=== PATIENT | female | born 1945 | race Caucasian/White ===

== ENCOUNTER 2019-10-03 12:21 | Outpatient (RCR) | payer BC, SELFPAY ==
[2019-10-03 12:39] VITALS: BMI 27.4
[2019-10-03 12:43] VITALS: BMI 27.4
== END 2020-01-01 23:59 | disposition home or self-care (01) ==
LOC: ANHDMC 12:21
DX: E11.9 Type 2 diabetes mellitus without complications (principal); Z71.3 Dietary counseling and surveillance
CPT/HCPCS: 97802

== ENCOUNTER 2020-05-13 09:15 | Outpatient (RCR) | payer BC, SELFPAY | END 2020-05-13 10:28 | disposition home or self-care (01) | LOC: ANHDMC 09:15 | PROVIDERS: Visit Provider Family Medicine Sports Medicine | DX: E11.9 Type 2 diabetes mellitus without complications (principal); Z71.89 Other specified counseling | CPT/HCPCS: G0108 ==

== ENCOUNTER 2020-10-09 15:53 | Outpatient (CLI) | payer BC, SELFPAY ==
--- NOTE | ~2020-10-09 | MM_ITS ---
EXAMINATION: MM screening sorin BI w sabina HISTORY: Screening mammogram TECHNIQUE: Craniocaudal and mediolateral oblique 3-D tomosynthesis images were obtained and synthetic 2-D images were generated. CAD analysis was submitted and interpreted. COMPARISON: 09/07/2019, 07/25/2018 bilateral digital screening mammogram examinations BREAST PARENCHYMAL COMPOSITION: There are scattered areas of fibroglandular density. FINDINGS: Occasional small low-density circumscribed benign-appearing opacities are noted. There is n o evidence of suspicious mass, calcification, or architectural distortion to suggest malignancy in ei ther breast. There has been no suspicious interval change. IMPRESSION: 1. No mammographic evidence of malignancy. 2. Recommend routine screening mammography in one year. BI-RADS Category 2: Benign finding(s). Reviewed, dictated and finalized at location A. TION SOCIAL WORKER
== END 2020-10-09 15:54 | disposition home or self-care (01) ==
LOC: ANHIMG 15:56
PROVIDERS: Visit Provider Family Medicine Sports Medicine
DX: Z12.31 Encounter for screening mammogram for malignant neoplasm of breast (principal)
CPT/HCPCS: 77063; 77067

== ENCOUNTER 2021-11-04 11:54 | Outpatient (CLI) | payer BC, SELFPAY ==
--- NOTE | ~2021-11-04 | MM_ITS ---
EXAMINATION: MM screening sorin BI w sabina HISTORY: Screening TECHNIQUE: Craniocaudal and mediolateral oblique 3-D tomosynthesis images were obtained and synthetic 2-D images were generated. CAD analysis was submitted and interpreted. COMPARISON: Comparison to multiple prior studies sequentially, with oldest reviewed study dated 06/03. BREAST PARENCHYMAL COMPOSITION: There are scattered areas of fibroglandular density. FINDINGS: There is no evidence of suspicious mass, calcification, or architectural distortion to sugg est malignancy in either breast. There has been no suspicious interval change. IMPRESSION: 1. No mammographic evidence of malignancy. 2. Recommend routine screening mammography in one year. BI-RADS Category 1: Negative Reviewed, dictated and finalized at location D. ION CREWS ACTIVITIES CLERK
== END 2021-11-04 11:55 | disposition home or self-care (01) ==
LOC: ANHIMG 11:57
PROVIDERS: Visit Provider Family Medicine Sports Medicine
DX: Z12.31 Encounter for screening mammogram for malignant neoplasm of breast (principal)
CPT/HCPCS: 77063; 77067

== ENCOUNTER 2022-07-26 13:22 | Outpatient (CLI) | payer BC, SELFPAY ==
--- NOTE | ~2022-07-26 | XR_ITS ---
EXAM: XR cervical spine 4-5V DATE: 07/26/2022 13:55 HISTORY: SPONDYLOSIS WITHOUT MYELOPATHY OR RADICULOPATHY . COMPARISON: None available. FINDINGS: Craniocervical association and atlantoaxial joint are aligned and display mild degenerativ e change. No prevertebral soft tissue swelling. Trace anterolisthesis at C3-4. 3 mm retrolisthesis at C5-6. 2 mm anterolisthesis at C7-T1. Mild vertebral body height loss at C5. Moderate disc space narr owing and marginal osteophytosis at C5-6 and C6-7 including large bridging anterior osteophytes. Mult ilevel severe facet sclerosis and hypertrophy. IMPRESSION: Multilevel grade 1 listheses. Moderate degenerative disc disease at C5-6 and C6-7. Multil evel severe facet arthropathy. Reviewed, dictated and finalized at location K. [place] MEDIA PROJECT MANAGER IMPRESSION: Multilevel grade 1 listheses. Moderate degenerative disc disease at C5-6 and C6-7. Multilevel severe facet arthropathy.
== END 2022-07-26 13:23 | disposition home or self-care (01) ==
DX: M47.812 Spondylosis without myelopathy or radiculopathy, cervical region (principal); M50.322 Other cervical disc degeneration at C5-C6 level
CPT/HCPCS: 72050

== ENCOUNTER 2023-01-13 07:57 | Outpatient (CLI) | payer BC, SELFPAY ==
--- NOTE | ~2023-01-13 | MM_ITS ---
EXAMINATION: MM screening sorin BI w sabina HISTORY: Screening mammogram TECHNIQUE: Craniocaudal and mediolateral oblique 3-D tomosynthesis images were obtained and synthetic 2-D images were generated. CAD analysis was submitted and interpreted. COMPARISON: November 04, 2021, October 09, 2020, August 30, 2019 bilateral screening mammogram exam inations BREAST PARENCHYMAL COMPOSITION: There are scattered areas of fibroglandular density. 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 There is no evidence of suspicious mass, calcification, or architectural distortion to sugges t malignancy in either breast. There has been no suspicious interval change. IMPRESSION: 1. No mammographic evidence of malignancy. 2. Recommend routine screening mammography in one year. BI-RADS Category 2: Benign finding(s). Reviewed, dictated and finalized at location A.
== END 2023-01-13 07:58 | disposition home or self-care (01) ==
LOC: ANHIMG 08:01
PROVIDERS: PCP Family Medicine Sports Medicine; Visit Provider Family Medicine Sports Medicine
DX: Z12.31 Encounter for screening mammogram for malignant neoplasm of breast (principal)
CPT/HCPCS: 77063; 77067

== ENCOUNTER 2024-01-26 07:20 | Outpatient (CLI) | payer BC, SELFPAY ==
--- NOTE | ~2024-01-26 | MM_ITS ---
EXAMINATION: MM screening sorin BI w sabina HISTORY: Screening mammogram TECHNIQUE: Craniocaudal and mediolateral oblique 3-D tomosynthesis images were obtained and synthetic 2-D images were generated. CAD analysis was submitted and interpreted. COMPARISON: January 13, 2023, November 04, 2021 bilateral screening mammogram examinations BREAST PARENCHYMAL COMPOSITION: There are scattered areas of fibroglandular density. FINDINGS: There is no evidence of suspicious mass, calcification, or architectural distortion to sugg est malignancy in either breast. There has been no suspicious interval change. IMPRESSION: 1. No mammographic evidence of malignancy. 2. Recommend routine screening mammography in one year. BI-RADS Category 1: Negative Reviewed, dictated and finalized at location B.
== END 2024-01-26 07:21 | disposition home or self-care (01) ==
PROVIDERS: PCP Family Medicine; Visit Provider Family Medicine
DX: Z12.31 Encounter for screening mammogram for malignant neoplasm of breast (principal)
CPT/HCPCS: 77063; 77067

== ENCOUNTER 2024-02-20 14:18 | Emergency (ER) | payer BC, SELFPAY ==
--- NOTE | ~2024-02-20 | CT_ITS ---
EXAMINATION: CT abdomen pelvis w con DATE: 02/20/2024 16:30 INDICATION: Left abdominal pain. Diarrhea. TECHNIQUE: Computed tomography (CT) of the abdomen and pelvis was performed with 100 mL Omnipaque 350 intravenous contrast. Automated exposure control and iterative reconstruction technique were employe d. The dose-length product was 452.75 mGy-cm. COMPARISON: CT abdomen pelvis 12/02/2017 FINDINGS: The visualized portions of the lung bases demonstrate mild atelectasis. There is mild scarr ing in paraspinal right lower lobe. No pleural effusion. The heart size is normal. There are coronary artery calcifications. No pericardial effusion. There are cysts in the liver measuring up to 10 mm. The spleen, pancreas, and adrenal glands are normal. There are cysts in right kidney measuring up to 5.8 cm. There is a 12 mm mass in right kidney measuring soft tissue attenuation, stable from 8, likely benign. There is a 5 mm stone in left kidney. There is calcified atherosclerosis of the aor ta and many of the other arteries. There is diverticulosis of the colon without evidence of diverticu litis. There are no dilated loops of bowel. The appendix is normal. There are no pathologically enlar ged lymph nodes. There is no free intraperitoneal fluid. There is severe lumbar spondylosis and mild thoracic spondylosis. IMPRESSION: 1. No etiology for the patient's symptoms. Reviewed, dictated and finalized at location A.
[2024-02-20 14:27] VITALS: BP 137/78; PULSE 78; RESP 20; TEMP 36.8; O2SAT 98
--- NOTE | 2024-02-20 15:23 | ED.ABDPAIN ---
HPI - Abdominal Pain General Chief Complaint: Abdominal Pain Stated Complaint: left sided abd pain Time Seen by Provider: 02/20/24 15:23 Focused HPI: Patient is a 73 y/o female, with PMH of IBS and GERD, who presents to the ED with c/o left upper abdominal pain. Pain has been ongoing for past few months, worse over last couple weeks. States pain is intermittent, presents with sharp shooting pains. Reports having at least 5 episodes of 10/10 pain in the last 1 month. Denies change with eating. Denies other aggravating or alleviating factors. Has not tried anything for the pain. Takes Prilosec for GERD. Called her PCP today and was referred to the ED for further evaluation. Patient denies fevers, N/V/D, constipation, rectal bleeding, melena, urinary complaints, CP, SOB. Patient sees Dr. Loaiza with colorectal surgery at [facility]. Sees for IBS and hemorrhoids. Has an appointment with him tomorrow. GENERAL: Elderly, well-nourished, and in no acute distress. HEAD: Normocephalic, atraumatic. CHEST: Clear to auscultation. ?No respiratory distress. HEART: Regular rate and rhythm.? ABD: Mild tenderness throughout left lower/mid abdomen. Normoactive BS. NEURO: ?Alert and oriented x3. Patient screened in triage and initial orders placed.? ?Additional care and disposition to be based upon?diagnostic testing and treatment. Source: patient Mode of arrival: ambulatory Limitations: no limitations Related Data Allergies Allergy/AdvReac Type Severity Reaction Status Date / Time aspirin Allergy Mild CAUSES GI Verified 02/20/24 16:02 DISTRESS codeine Allergy Mild SEVERE Verified 02/20/24 16:02 HEADACHE PMFSH Past Medical History Medical History (Updated 02/21/24 @ 00:00 by Uzma Hutson) Diabetes Encounter for screening colonoscopy Fatty liver Social History Social History Smoking status: Never smoker Spiritual care concerns: No Course Vital Signs Vital signs: Vital Signs Temperature 98.2 F 02/20/24 14:27 Pulse Rate 78 02/20/24 14:27 Respiratory Rate 20 02/20/24 14:27 Blood Pressure 137/78 02/20/24 14:27 Pulse Oximetry 98 02/20/24 14:27 Temperature 98.2 F 02/20/24 14:27 Pulse Rate 51 L 02/20/24 16:54 Respiratory Rate 18 02/20/24 16:54 Blood Pressure 132/82 02/20/24 16:54 Pulse Oximetry 100 02/20/24 16:54 MDM - Abdominal Pain MDM Narrative Medical decision making narrative: MSE by RUDY in triage. Lab Data 02/20/24 15:53 02/20/24 15:53 Labs: Lab Results 02/20/24 Range/Units 15:53 WBC 7.1 (4.5-10.0) K/mm3 RBC 4.83 (4.2-5.4) M/mm3 Hgb 13.9 (12.0-15.0) g/dL Hct 43.9 (37.0-47.0) % MCV 90.9 (80-100) fl MCH 28.8 (26-34) pg MCHC 31.7 L (32-36) g/dl RDW 13.7 (11.5-14.5) % Plt Count 244 (150-375) k/mm3 MPV 9.6 (7.4-10.4) fl Immature Gran % (Auto) 0.1 (0-0.5) % Neut % (Auto) 64.4 (45.5-73.1) % Lymph % (Auto) 24.7 (18.3-44.2) % Giles % (Auto) 7.8 (2.6-8.5) % Eos % (Auto) 2.0 (0-4.4) % Baso % (Auto) 1.0 (0.2-1.2) % Lymph # (Auto) 1.74 (0.9-3.2) K/mm3 Giles # (Auto) 0.6 (0.1-0.6) K/mm3 Eos # (Auto) 0.1 (0-0.3) K/mm3 Baso # (Auto) 0.1 (0.0-0.1) K/mm3 Abs Immat Gran (auto) 0.01 (0.00-0.031) K/mm3 Absolute Neuts (auto) 4.5 (1.3-6.7) K/mm3 Absolute Nucleated RBC 0.000 (0.0-0.012) K/mm3 Nucleated RBC % 0.0 (0.0-0.2) % Sodium 139 (137-145) mmol/L Potassium 4.4 (3.4-5.0) mmol/L Chloride 105 (98-107) mmol/L Carbon Dioxide 30 (22-30) mmol/L Anion Gap 4 (4-12) mmol/L BUN 20 H (7-17) mg/dL Creatinine 1.00 (0.7-1.0) mg/dL Estim Creat Clear Calc 38 ml/min Estimated GFR 53 L (59 - ) Glucose 111 H (65-110) mg/dL Calcium 9.3 (8.4-10.2) mg/dL Total Bilirubin 1.5 H (0.2-1.3) mg/dL AST 41 H (14-36) U/L ALT 41 H (6-35) U/L Alkaline Phosphatase 58 (38-126) U/L Troponin I <
--- NOTE | 2024-02-20 15:27 | ECG_ITS ---
[facility] [address] Test Date: 2024-02-20 Pat Name: Jessica Winters Department: Room: Gender: F Consultant: : 1945 Requested By: Nakita Samaniego Order Number: [id number] Reading MD: Faustino Clarke M.D. Measurements Intervals Crooks Rate: 63 P: 48 PA: 184 QRS: -14 QRSD: 104 T: 49 QT: 396 QTc: 408 Interpretive Statements SINUS RHYTHM No previous ECG available for comparison Electronically Signed On 02-21-2024 14:14:56 CDT by Faustino Clarke M.D.
[2024-02-20 15:59] LABS: Basophils Absolute Auto 0.1 K/mm3 (0.0-0.1); Eosinophils Absolute Auto 0.1 K/mm3 (0-0.3); Hematocrit 43.9 % (37.0-47.0); Hemoglobin 13.9 g/dL (12.0-15.0); Immature Granulocyte Absolute 0.01 K/mm3 (0.00-0.031); Immature Granulocyte Percent A 0.1 % (0-0.5); Lymphocytes Absolute Auto 1.74 K/mm3 (0.9-3.2); Lymphocytes Percent Auto 24.7 % (18.3-44.2); Mean Corpuscular HGB Conc 31.7 g/dl (32-36); Mean Corpuscular Hemoglobin 28.8 pg (26-34); Mean Corpuscular Volume 90.9 fl (80-100); Mean Platelet Volume 9.6 fl (7.4-10.4); Monocytes Absolute Auto 0.6 K/mm3 (0.1-0.6); Monocytes Percent Auto 7.8 % (2.6-8.5); Neutrophils Absolute Auto 4.5 K/mm3 (1.3-6.7); Neutrophils Percent Auto 64.4 % (45.5-73.1); Platelet Count Result 244 k/mm3 (150-375); Red Blood Count 4.83 M/mm3 (4.2-5.4); Red Cell Distribution Width 13.7 % (11.5-14.5); White Blood Count 7.1 K/mm3 (4.5-10.0)
[2024-02-20 16:10] LABS: Alanine Aminotransferase 41 U/L (6-35); Albumin Level 4.4 g/dL (3.5-5.1); Alkaline Phosphatase 58 U/L (38-126); Anion Gap 4 mmol/L (4-12); Aspartate Amino Transferase 41 U/L (14-36); Bilirubin,Total 1.5 mg/dL (0.2-1.3); Blood Urea Nitrogen 20 mg/dL (7-17); Calcium 9.3 mg/dL (8.4-10.2); Carbon Dioxide 30 mmol/L (22-30); Chloride 105 mmol/L (98-107); Estimated CRCL calculation 38 ml/min; Estimated Glomerular Filt Rate 53; Glucose 111 mg/dL (65-110); Lipase 234 U/L (23-300); Potassium 4.4 mmol/L (3.4-5.0); Sodium 139 mmol/L (137-145)
--- NOTE | 2024-02-20 16:10 | ED.ABDPAIN ---
HPI - Abdominal Pain General Chief Complaint: Abdominal Pain Stated Complaint: left sided abd pain Time Seen by Provider: 02/20/24 15:23 Source: patient Mode of arrival: ambulatory Limitations: no limitations History of Present Illness HPI narrative: Pt presents with LUQ and left fank pain for over a month. Pt says it is mild but always present. rates it a 1 or 2 of 10 on pain scale. Pt says is nauseated at times. Pt called PCP and sent to ER for evaluation. Related Data Allergies Allergy/AdvReac Type Severity Reaction Status Date / Time aspirin Allergy Mild CAUSES GI Verified 02/20/24 16:02 DISTRESS codeine Allergy Mild SEVERE Verified 02/20/24 16:02 HEADACHE Review of Systems Review of Systems: All systems reviewed & are unremarkable except as noted in HPI and below PMFSH Past Medical History Medical History (Updated 02/20/24 @ 17:25 by Courtney Khan III, DO) Diabetes Encounter for screening colonoscopy Fatty liver Social History Social History Smoking status: Never smoker Spiritual care concerns: No Exam Const: General: healthy appearing and no acute distress Nutritional Appearance: well nourished Orientation/consciousness: patient oriented x3 Limitations: no limitations HENMT: Head: normal to inspection Neck: Neck: normal visual inspection Chest: Chest palpation & inspection: normal inspection of the chest Resp: Effort & Inspection: normal respiratory effort Auscultation: clear to auscultation bilaterally Cardio: Rate: regular rate Rhythm: regular rhythm GI: GI Palp: Yes Soft to palpation and Yes Tenderness to palpation present (GI) (LLQ no guarding or rebound, no epigastic or LUQ tenderness noted) Auscultation: normal bowel sounds Back/Spine/Pelvis: Back: no CVA tenderness Skin: General skin exam: normal color Rashes: no rashes Wounds: no wounds Neuro: General: patient oriented x3, moves all extremities, no meningeal signs and no focal motor deficits Speech: normal speech Extrem: General: normal to inspection and no clubbing, cyanosis or edema Psych: Mental Status: mental status grossly normal Affect: normal affect Attitude: cooperative Course Vital Signs Vital signs: Vital Signs Temperature 98.2 F 02/20/24 14:27 Pulse Rate 78 02/20/24 14:27 Respiratory Rate 20 02/20/24 14:27 Blood Pressure 137/78 02/20/24 14:27 Pulse Oximetry 98 02/20/24 14:27 Temperature 98.2 F 02/20/24 14:27 Pulse Rate 51 L 02/20/24 16:54 Respiratory Rate 18 02/20/24 16:54 Blood Pressure 132/82 02/20/24 16:54 Pulse Oximetry 100 02/20/24 16:54 MDM - Abdominal Pain MDM Narrative Medical decision making narrative: Pt has mild LUQ and left flank pain for over a month. Will check ua, labs and CT. labs us and ct neg. home on pepcid. Differential Diagnosis Differential diagnosis: Likely abdominal pain, calculus of kidney, diverticulitis, gastroenteritis, pancreatitis, small bowel obstruction and other (gastritis) Lab Data 02/20/24 15:53 02/20/24 15:53 Labs: Lab Results 02/20/24 Range/Units 15:53 WBC 7.1 (4.5-10.0) K/mm3 RBC 4.83 (4.2-5.4) M/mm3 Hgb 13.9 (12.0-15.0) g/dL Hct 43.9 (37.0-47.0) % MCV 90.9 (80-100) fl MCH 28.8 (26-34) pg MCHC 31.7 L (32-36) g/dl RDW 13.7 (11.5-14.5) % Plt Count 244 (150-375) k/mm3 MPV 9.6 (7.4-10.4) fl Immature Gran % (Auto) 0.1 (0-0.5) % Neut % (Auto) 64.4 (45.5-73.1) % Lymph % (Auto) 24.7 (18.3-44.2) % Summers % (Auto) 7.8 (2.6-8.5) % Eos % (Auto) 2.0 (0-4.4) % Baso % (Auto) 1.0 (0.2-1.2) % Lymph # (Auto) 1.74 (0.9-3.2) K/mm3 Summers # (Auto) 0.6 (0.1-0.6) K/mm3 Eos # (Auto) 0.1 (0-0.3) K/mm3 Baso # (Auto) 0.1 (0.0-0.1) K/mm3 Abs Immat Gran (auto) 0.01 (0.00-0.031) K/mm3 Absolute Neuts (auto) 4.5 (1.3-6.7) K/mm3 Absolute Nucleated RBC 0.000 (0.0-0.012) K/
[2024-02-20] MEDS: BELLADONNA ALK/PHENOB ELIX 10 ML, MAG HYDROX/ALUMINUM HYD/SIMETH 30 ML, LIDOCAINE HCL 2... PO (16:16)
[2024-02-20] MEDS: LIDOCAINE HCL 2% VISC SOLN 15 ML UDC (16:17)
[2024-02-20] MEDS: PANTOPRAZOLE SODIUM IV 40 MG VIAL IV PUSH (16:17)
[2024-02-20] MEDS: MAG HYDROX/AL HYDROX/SIMETH 30 ML UDC (16:17)
[2024-02-20 16:21] LABS: Troponin I < 0.012 ng/mL (0.000-0.034)
[2024-02-20] MEDS: ONDANSETRON INJ 4 MG/2 ML VIAL IV PUSH (16:48)
[2024-02-20] MEDS: FAMOTIDINE 20 MG/2 ML VIAL IV PUSH (16:48)
[2024-02-20 16:54] VITALS: BP 132/82; PULSE 51; RESP 18; O2SAT 100
== END 2024-02-20 17:31 | disposition home or self-care (01) ==
PROVIDERS: Physician Assistant; Emergency Provider Emergency Medicine; PCP Family Medicine
DX: K29.70 Gastritis, unspecified, without bleeding (principal); K21.9 Gastro-esophageal reflux disease without esophagitis; E11.9 Type 2 diabetes mellitus without complications
CPT/HCPCS: 36415; 74177; 80053; 83690; 84484; 85025; 93005; 96374; 96375; 99284; A9270; C9113; J2405; Q9967

== ENCOUNTER 2024-08-01 12:35 | Outpatient (NON) | payer BC, SELFPAY ==
[2024-08-01 19:44] LABS: Basophils Absolute Auto 0.1 K/mm3 (0.0-0.1); Basophils Percent Auto 1.2 % (0.2-1.2); Eosinophils Absolute Auto 0.8 K/mm3 (0-0.3); Eosinophils Percent Auto 10.8 % (0-4.4); Hematocrit 35.2 % (37.0-47.0); Hemoglobin 10.8 g/dL (12.0-15.0); Immature Granulocyte Absolute 0.03 K/mm3 (0.00-0.031); Immature Granulocyte Percent A 0.4 % (0-0.5); Lymphocytes Absolute Auto 2.07 K/mm3 (0.9-3.2); Lymphocytes Percent Auto 27.9 % (18.3-44.2); Mean Corpuscular HGB Conc 30.7 g/dl (32-36); Mean Corpuscular Hemoglobin 28.6 pg (26-34); Mean Corpuscular Volume 93.1 fl (80-100); Mean Platelet Volume 9.7 fl (7.4-10.4); Monocytes Absolute Auto 0.5 K/mm3 (0.1-0.6); Monocytes Percent Auto 6.9 % (2.6-8.5); Neutrophils Absolute Auto 3.9 K/mm3 (1.3-6.7); Neutrophils Percent Auto 52.8 % (45.5-73.1); Platelet Count Result 444 k/mm3 (150-375); Red Blood Count 3.78 M/mm3 (4.2-5.4); Red Cell Distribution Width 14.3 % (11.5-14.5); White Blood Count 7.4 K/mm3 (4.5-10.0)
== END 2024-08-01 12:36 | disposition home or self-care (01) ==
PROVIDERS: PCP Family Medicine
DX: I25.10 Atherosclerotic heart disease of native coronary artery without angina pectoris (principal); Z48.812 Encounter for surgical aftercare following surgery on the circulatory system
CPT/HCPCS: 85025

== ENCOUNTER 2025-02-14 14:40 | Outpatient (CLI) | payer MEDICARE, SELFPAY ==
--- NOTE | ~2025-02-14 | MM_ITS ---
EXAMINATION: MM screening [facility] BI w sabina HISTORY: Screening TECHNIQUE: Craniocaudal and mediolateral oblique 3-D tomosynthesis images were obtained and synthetic 2-D images were generated. CAD analysis was submitted and interpreted. COMPARISON: Comparison to multiple prior studies sequentially, with oldest reviewed study dated 07/20. BREAST PARENCHYMAL COMPOSITION: Not Dense: The breasts are almost entirely fatty. FINDINGS: There is no evidence of suspicious mass, calcification, or architectural distortion to sugg est malignancy in either breast. There has been no suspicious interval change. IMPRESSION: 1. No mammographic evidence of malignancy. 2. Recommend routine screening mammography in one year. BI-RADS Category 1: Negative Reviewed, dictated and finalized at location A.
== END 2025-02-14 14:41 | disposition home or self-care (01) ==
LOC: ANHIMG 14:43
PROVIDERS: PCP Family Medicine; Visit Provider Family Medicine
DX: Z12.31 Encounter for screening mammogram for malignant neoplasm of breast (principal)
CPT/HCPCS: 77063; 77067

== ENCOUNTER 2025-05-06 08:35 | Outpatient (CLI) | payer MEDICARE, SELFPAY ==
--- NOTE | ~2025-05-06 | CT_ITS ---
CT of the Abdomen and Pelvis: Indication: Renal mass Technique: 2.5 mm axial scans were obtained through the abdomen and pelvis prior to and following in travenous administration of 100 cc of Omnipaque 350. Dose reduction technique was used on this scan b y utilizing automated exposure control and iterative reconstruction technique. The dose-length produc t (DLP) was 1037.18 mGy-cm. COMPARISON: 02/20/2024 Findings: Scans through the lung bases demonstrate 5 mm right basilar pulmonary nodule (axial image 28), possibly mildly increased from prior exam.. There is diffuse hepatic steatosis. Call bladder absent. The spleen, pancreas, and adrenal glands are within normal limits. There is a 1 cm hyperdense, nonenhancing cyst at the peripheral aspect of the right kidney. Additional larger simple right renal cysts are also present. 5 mm nonobstructing left r enal stone present. No evidence of aortic aneurysm. No lymphadenopathy. No bowel obstruction or bowel wall thickening. There is no evidence to suggest acute appendicitis. Images through the pelvis were performed. Urinary bladder unremarkable. Status post hysterectomy. No pelvic mass seen. No ascites. Impression: Simple and hyperdense right renal cysts, as noted above. No suspicious renal mass seen. 5 mm nonobstructing left renal stone. 5 mm right basilar pulmonary nodule, probably minimally increased from prior exam. Follow-up exam in one year advised. Reviewed, dictated and finalized at [facility]. Impression: Simple and hyperdense right renal cysts, as noted above. No suspicious renal ma ss seen. 5 mm nonobstructing left renal stone. 5 mm right basilar pulmonary nodule, probably minimally increased from prior ex am. Follow-up exam in one year advised.
[2025-05-06 09:00] LABS: Estimated Glomerular Filt Rate 39
== END 2025-05-06 08:36 | disposition home or self-care (01) ==
PROVIDERS: PCP Family Medicine; Visit Provider Family Medicine
DX: N28.1 Cyst of kidney, acquired (principal); N20.0 Calculus of kidney; R91.8 Other nonspecific abnormal finding of lung field
CPT/HCPCS: 74178; Q9967